=== PATIENT | female | born 1975 | race Hispanic/Latino ===

== ENCOUNTER 2017-04-06 08:46 | Inpatient (IN) | payer SELFPAY ==
[~2017-04-06] VITALS: Ht 152.4 cm; Wt 95.3 kg
[2017-04-06] MEDS ORDERED: OXYCODONE/ACETA1 TA8 PO (09:59)
[2017-04-06] MEDS ORDERED: BUSPIRONE5 MG PO (09:59)
[2017-04-06] MEDS ORDERED: PHENTERMINE37.5 MG PO (09:59)
[2017-04-06] MEDS ORDERED: FERR SULFATE325 MG PO (10:00)
[2017-04-11] VITALS (9 sets, daily range): BP systolic 86–111; BP diastolic 44–72
[2017-04-11 16:43] LABS: HEMATOCRIT 36.2 % (37.0-47.0); HEMOGLOBIN 11.5 g/dl (12.0-16.0)
[2017-04-12 05:42] VITALS: BP 105/65
[2017-04-12 08:32] VITALS: BP 104/67
[2017-04-12] MEDS ORDERED: LORTAB 5-325 MG1 TAB PO (12:48)
[2017-04-12] MEDS ORDERED: IBUPROFEN600 MG PO (12:50)
[2017-04-12] MEDS ORDERED: PYRIDIUM200 MG PO (12:51)
== END 2017-04-12 15:22 | disposition home or self-care (01) | DRG 742 ==
LOC: MS2 04-11 06:52 → EDUNIT# 04-11 08:45 → MS2 04-11 08:45
PROVIDERS: ADMIT Obstetrics & Gynecology; ATTEND Obstetrics & Gynecology
PROC: 0UT97ZZ Resection of Uterus, Via Natural or Artificial Opening (ICD-10-PCS; principal; 2017-04-11)
PROC: 0UTC7ZZ Resection of Cervix, Via Natural or Artificial Opening (ICD-10-PCS; 2017-04-11)
PROC: 0UT77ZZ Resection of Bilateral Fallopian Tubes, Via Natural or Artificial Opening (ICD-10-PCS; 2017-04-11)
PROC: 0JQC0ZZ Repair Pelvic Region Subcutaneous Tissue and Fascia, Open Approach (ICD-10-PCS; 2017-04-11)
PROC: 0UQF7ZZ Repair Cul-de-sac, Via Natural or Artificial Opening (ICD-10-PCS; 2017-04-11)
DX: N81.3 Complete uterovaginal prolapse (principal); Z68.41 Body mass index [BMI] 40.0-44.9, adult; D50.0 Iron deficiency anemia secondary to blood loss (chronic); N39.3 Stress incontinence (female) (male); N92.1 Excessive and frequent menstruation with irregular cycle; E66.9 Obesity, unspecified
CPT/HCPCS: J2710; Q9967